=== PATIENT | female | born 1960 | race Caucasian/White ===

== ENCOUNTER 2025-01-15 18:50 | Observation (INO) | payer OTHER, SELFPAY ==
[2025-01-15] VITALS (8 sets, daily range): BP systolic 120–165; BP diastolic 69–126; BMI 31.5; BMI 32.4
--- NOTE | 2025-01-15 12:03 | ED.GENMED ---
History of Present Illness
General
Chief Complaint: Breathing Problem
Source: patient
Exam Limitations: none
Time Seen by Provider: 01/15/25 12:02
Nursing documentation reviewed up to this point in time: agreed with
History of Present Illness
History of Present Illness:
64-year-old female with history of fibromyalgia, migraines, GERD, IBS, Knapp's esophagus, anxiety/depression, cholecystectomy, hysterectomy presents for worsening fatigue, exhaustion, nausea, heart beating fast and breaking out in a sweat with any
exertion over the past 2 weeks.
Past History
Past History
ED Past Medical History: GERD, Psychiatric (Anxiety, depression, PTSD.) and Other (Fibromyalgia)
ED Past Surgical History: Cholecystectomy and Gynecological
Social History
Tobacco: Non-smoker
Alcohol: None
Personal: Single
Living: with family (Lives with her son)
Employment: Not employed
Review of Systems
Review of Systems
Allergies reviewed?: Yes
All Other Systems: ROS reviewed and negative except as documented in HPI and ROS
Constitutional: Reports fatigue; Denies fever
EENT: Denies sore throat
Respiratory: Reports trouble breathing; Denies cough
Cardiac: Reports diaphoresis and palpitations; Denies chest pain or syncope
ABD/GI: Reports nausea and anorexia; Denies abdominal pain, vomiting or diarrhea
: Denies dysuria, frequency, difficulty voiding or urgency
Musculoskeletal: Reports other (Chronic generalized pain followed by pain management); Denies edema
Skin: Reports no symptoms
Neurological: Denies headache, weakness or numbness
Psychiatric: Reports anxiety (Patient admits that her anxiety may be playing a part in her symptoms. She took 0.5 mg of alprazolam prior to coming here.)
Phy Exam
Physical Exam
Physical Exam:
GENERAL: No acute distress. A&Ox3.
CONSTITUTIONAL: Afebrile.
EYES: clear, conjunctivae normal
ENMT: moist mucus membranes, Pharynx nl
RESPIRATORY: Regular respirations, nonlabored, lungs clear. No hypoxemia, pulse ox 98% on room air
CARDIOVASCULAR: Regular rate and rhythm, no murmurs, no rubs. Tachycardic at 114 on monitor
GI: Soft, nontender, normal BS
MUSCULOSKELETAL: Moves with ease. Well perfused. No edema
SKIN: Warm, dry, pink
PSYCH: Anxious mood and affect. Well kept, interactive and appropriate
NEUROLOGIC: Awake, alert and oriented. No focal neurological deficits
Scores
Heart Failure Risk
Heart Failure Risk Score: Not Applicable
Course
Orders/Labs/Results
Orders:
Orders
01/15/25 11:41
Electrocardiogram (*1) Urgent
Reason for Study: Chest Pain
EKG- Treatment ONCE
01/15/25 12:09
Complete Blood Count/With Diff Urgent
Comprehensive Metabolic Panel Urgent
TSH Reflex To Free T4 Urgent
Comment: ADD ON
01/15/25 12:38
Ondansetron Injectable [Zofran] 4 mg IV NOW STA
01/15/25 12:39
0.9% Sodium Chloride 1000 ml [Nss] 1,000 ml IV BOLUS
01/15/25 12:40
D-Dimer Urgent
01/15/25 12:53
Add On- LAB Urgent
Tests Added?: TSH reflex T4
01/15/25 13:19
Troponin I Urgent
01/15/25 14:14
CT Chest PE Study Urgent
Comment:
Reason For Exam: Tachy, SOB with any exertion
01/15/25 16:59
Troponin I Urgent
01/15/25 18:11
Admit/Transfer Patient As Directed
Co-Sign Provider:
Level of Care: Observation services
Assign to:: Telemetry
Physician / Group: Yovani Ritchie
Diagnosis: exertional dyspnea, palpitations
Reason for Telemetry: Chest Pain syndromes
Date to Stop Telemetry: 01/17/25
Time to Stop Telemetry: 11:00
PRN Pain Medication Management As Directed
May give lesser potent ordered pain med per pt: Yes
preference::
Protocol:: Medication orders for pain may be administered in a
manner that supports deferring to patient preference
when the pt is:
- Requesting an ordered lesser potent pain medication.
Least to most potent pain medications are defined
as: acetaminophen < NSAID < tramadol < opioids
(morphine, oxycodone, hydromorphone).
- Requesting a lesser dose of the same medication IF
ORDERED.
- Requesting a less intrusive route of administration
if both routes are prescribed by the provider (PO <
IV).
01/15/25 18:12
Code Status As Directed
Resuscitation Status: Full Code
01/15/25 18:17
Potassium Chloride [KCl] 40 meq PO NOW STA
01/17/25 11:00
DC Protocol for Telemetry ONCE
Abnormal Lab Results
01/15/25
12:09
WBC 12.3 H 10^3/uL
(4.8-10.8)
MCH 32.5 H pg
(27.0-31.0)
Absolute Neuts (auto) 8.9 H 10^3/uL
(1.4-6.5)
Potassium 3.2 L mmol/L
(3.5-5.1)
Carbon Dioxide 19 L mmol/L
(22-30)
Glucose 123 H mg/dl
(70-99)
Calcium 10.5 H mg/dl
(8.4-10.2)
01/15/25 12:09
01/15/25 12:09
Vital Signs
Initial and Last Documented VS:
Initial Vital Signs
Temp Pulse Resp BP Pulse Ox
97.7 F 131 24 161/126 100
01/15/25 11:45 01/15/25 11:45 01/15/25 11:45 01/15/25 11:45 01/15/25 11:45
Last Documented Vital Signs
Temp Pulse Resp BP Pulse Ox
97.7 F 89 12 155/76 98
01/15/25 11:45 01/15/25 18:15 01/15/25 18:15 01/15/25 18:00 01/15/25 17:45
Bods Developer consulted with Physician
Bods Developer consulted with physician?: Yes
Name of Physician Consulted: Dr. Weber
MDM/Problems Addressed
Differential Diagnosis Includes:
PE, pneumonia, dehydration, thyroid disorder, Anxiety, cardiac, COPD
MDM/Problems Addressed:
64-year-old female with history of fibromyalgia, migraines, GERD, IBS, Knapp's esophagus, anxiety/depression, cholecystectomy, hysterectomy presents for worsening fatigue, exhaustion, nausea, heart beating fast and breaking out in a sweat with any
exertion over the past 2 weeks.
EKG: Sinus tachycardia rate 124, occasional PVC
12:45 PM:
CBC with no clinically significant abnormality
CMP with bicarb of 19, patient is anxious, hyperpneic and instructed to slow her breathing down, otherwise CMP is normal
TSH: WNL
Troponin:WNL
1:40 PM:
D dimer normal
Patient ambulated around the hallway with pulse ox on, maintained Pulse ox at 98%, she felt a little dizzy, HR went to 124, she did not feel SOB.
In to re evaluate pt: she does not feel any better. Concerned that 'I don't know what's going on.' at bedside states 'it's been going on for a while.' Any time she does any activity, she gets the symptoms.
4:30 PM:
Case discussed with Dr. Weber
Chest CT with IV contrast only radiology report read: No significant abnormality identified in the chest.
Nothing in w/u here today to explain symptoms
Pt and not comfortable being discharged as symptoms are not typical of her anxiety
Pt is a smoker: May be early COPD, may need echo, need cardiac workup, Pulmonary eval
Hospitalist notified of admission.
Spoke with Cardiology Dr. Morris who agrees pt may need echocardiogram, no tech in the hospital at this time
Chronic conditions affecting care: Psychiatric illness (anxiety)
*Pulse Oximetry
Patient hypoxic: no (Pulse ox 98% on room air)
Comment: Pulse ox 98% RA
*EKG
EKG Intrepretation Date: 01/15/25
Interpretation: abnormal
Heart Rate: 124
Rate: tachycardiac
Rhythm: sinus
[place]: normal axis
Interval: normal interval
QRS Pattern: normal QRS
Ischemia: no ischemia
*Cash Accountant Interpretation
Rate: tachycardiac
Interpretation: abnormal
Heart Rate: 114
Rhythm: sinus
*Critical Care Note
Total Time (30-74mins, 75-104mins- exclusive of procedures): Not Applicable
ED Attending Note
-
Portions of this chart may have been created with voice recognition software.� Occasional wrong word or��sound alike� substitutions may have occurred due to the inherent limitations of voice recognition software.
Discharge Plan
Departure
Patient Disposition: Admit
Date of Disposition: 01/15/25
Time of Disposition: 16:45
Admit to: Med/Surg
Presentation/result/management discussed w/ accepting MD/DO: Hospitalist
Condition: Fair
Discharge Problem:
BOJORQUEZ (dyspnea on exertion), Fatigue
Interventions
Interventions:
*Risk Screen - Suicide Last Done: 01/15/25 11:45
*General Assessment Last Done: 01/15/25 11:45
*Neglect/Abuse Screening Last Done: 01/15/25 11:45
*ED- Fall Risk Assessment Last Done: 01/15/25 15:26
*ED COVID-19 Vaccine History Last Done: 01/15/25 15:26
ED- Cardiac Assessment Last Done: 01/15/25 15:26
ED- Pulmonary Assessment Last Done: 01/15/25 15:26
[2025-01-15 12:19] LABS: % Basophils 0.6 % (0-2); % Eosinophils 0.7 % (0-6); % Immature Granulocytes 0.3 % (0-0.5); % Lymphocytes 22.6 % (20.5-51.1); % Monocytes 3.3 % (1.7-9.3); % Neutrophils 72.5 % (42.2-75.2); Absolute Basophils 0.1 10^3/uL (0-0.2); Absolute Eosinophils 0.1 10^3/uL (0-0.7); Absolute Lymphocytes 2.8 10^3/uL (1.2-3.4); Absolute Monocytes 0.4 10^3/uL (0.1-0.6); Absolute Neutrophils 8.9 10^3/uL (1.4-6.5); Hematocrit 42.2 % (37.0-47.0); Hemoglobin 14.9 g/dL (12.0-16.0); Mean Corp Hgb Conc. 35.3 g/dL (33.0-37.0); Mean Corpuscular Hgb 32.5 pg (27.0-31.0); Mean Corpuscular Volume 91.9 fL (81.0-99.0); Nucleated Red Blood Cells % 0 %; Platelet Count 361 10^3/uL (130-400); Red Blood Cell Count 4.59 10^6/uL (4.20-5.40); Red Cell Dist. Width 13.3 % (11.5-14.5); White Blood Cell Count 12.3 10^3/uL (4.8-10.8)
[2025-01-15 12:37] LABS: AST (SGOT) 24 U/L (14-36); Alkaline Phosphatase 76 U/L (38-126); Blood Urea Nitrogen 8 mg/dl (7-17); Calcium 10.5 mg/dl (8.4-10.2); Carbon Dioxide 19 mmol/L (22-30); Chloride 105 mmol/L (98-107); Glucose 123 mg/dl (70-99); Potassium 3.2 mmol/L (3.5-5.1); Sodium 139 mmol/L (135-145); Total Bilirubin 0.5 mg/dl (0.2-1.3); Total Protein 8.1 g/dl (6.3-8.2); eGFR > 60.00
[2025-01-15] MEDS: ZOFRAN 4 MG IV ×2 (12:45→19:20)
[2025-01-15] MEDS: NSS 1000 IV (12:48)
[2025-01-15 12:51] LABS: ALT (SGPT) 31 U/L (0-35)
[2025-01-15 13:11] LABS: D-Dimer < 0.27 ug/mlFEU (0.00-0.50)
[2025-01-15 13:49] LABS: Troponin I < 0.012 ng/ml
[2025-01-15 14:26] LABS: TSH Reflex To Free T4 3.22 uIU/ml (0.47-4.68)
--- NOTE | 2025-01-15 17:25 | HPS.HSE ---
Family Physician
-
Family Physician: Maryjo Conde
Chief Complaint
-
worsening fatigue
History of Present Illness
Patient is a 64-year-old female with past medical history significant for depression and anxiety who presents to [facility] ED for evaluation of worsening fatigue, exhaustion, nausea, tachycardia and exertional diaphoresis over the past 2 weeks. She
states the symptoms arise with minimal exertion and resolve with rest. She is expressing frustration with symptoms as she normally is a go-go-go type of person and this has made it very limiting. Patient denies any headaches, fever, chills, cough,
chest pain, vomting, constipation, diarrhea or urinary symptoms.
Medical History
Past Medical History
Past Medical History: Reports Other
Additional Past Medical History:
Fibromyalgia
Depression
Anxiety
Cyst Of Liver
C. difficile colitis
Knapp's Esophagus
Diverticulitis
Past Surgical History: Reports Other
Additional Past Surgical History:
Robotic Total Laparoscopic Hysterectomy and BSO (2009)
Cholecystectomy
Social History
Tobacco: Smoker (pack per day, approximate 30 pack year history )
Alcohol: None
Drug: None
Personal: Single
Living: With Family
Employment: Disabled
Family History
Family History: Other (Mother: CHF; Father: CAD, [place])
Allergies / Home Medications
Allergies reflects when Allergies were last updated in [employer].
Home Medications with original date entered in [employer]
Allergy/Medication List:
Allergies
Allergy/AdvReac Type Severity Reaction Status Date / Time
naproxen (Naproxen) Allergy Rash Verified 01/15/25 11:45
Home Medications
duloxetine 60 mg capsule,delayed release (Cymbalta) 60 mg PO DAILY 05/30/09
oxycodone-acetaminophen 5 mg-325 mg tablet 1 tab PO Q6HPRN PRN Pain #8 tabs 11/20/14
alprazolam 0.5 mg tablet 0.5 mg PO DAILY 01/15/25
celecoxib 200 mg capsule (Celebrex) 200 mg PO HS 01/15/25
celecoxib 200 mg capsule (Celebrex) 400 mg PO DAILY 01/15/25
conjugated estrogens 0.625 mg tablet (Premarin) 0.625 mg PO DAILY 01/15/25
milnacipran 100 mg tablet (Savella) 100 mg PO DAILY 01/15/25
omeprazole 40 mg capsule,delayed release 80 mg PO DAILY 01/15/25
quetiapine 50 mg tablet (Seroquel) 50 mg PO HS 01/15/25
sertraline 100 mg tablet (Zoloft) 100 mg PO DAILY 01/15/25
tizanidine 4 mg tablet 4 mg PO Q8H PRN spams 01/15/25
Review of Systems
-
History Source: Patient
Constitutional: Reports Fatigue
Respiratory: Reports Trouble Breathing (exertional dyspnea )
Cardiac: Reports Diaphoresis
Abdomen/GI: Reports Nausea
Physical Exam
Vital Signs
Vital Signs
Temp Pulse Resp BP Pulse Ox
97.7 F 102 13 120/74 98
01/15/25 11:45 01/15/25 15:37 01/15/25 15:37 01/15/25 15:00 01/15/25 15:37
Physical Exam
General: Well Developed, Well Nourished, No Apparent Distress and Obese
HEENT: NormoCephalic, Moist mucous membranes, Atraumatic, Nose Appears Normal and Ears Appear Normal
Respiratory: Clear
Cardiac: S1/S2 and Regular Rhythm
Breast: Deferred by me
GI: Soft, Non Tender, Non Distended and Normal Bowel Sounds
Rectal: Deferred by Provider
Genito-urinary: Deferred by me
Musculoskeletal: No Clubbing, No Cyanosis and No Edema
Skin: IV/Catheter Site
Neuro: Awake, Alert, AO x 3 and Nonfocal/grossly intact
Psych: Calm
Laboratory Results
-
01/15/25 12:09
01/15/25 12:09
Laboratory Results
Total Bilirubin 0.5 mg/dl (0.2-1.3) 01/15/25 12:09
AST 24 U/L (14-36) 01/15/25 12:09
ALT 31 U/L (0-35) 01/15/25 12:09
Alkaline Phosphatase 76 U/L (38-126) 01/15/25 12:09
Troponin I < 0.012 ng/ml 01/15/25 13:19
Data Reviewed
-
CT Scan: Report Reviewed by me (Chest: 1. No evidence of pulmonary embolism. 2. No significant abnormality identified in the chest, as described above.)
Medical Tests (Nuc Med, Echo, EKG etc): Report Reviewed by me (EKG: SINUS TACHYCARDIA WITH OCCASIONAL PREMATURE VENTRICULAR COMPLEXES BIATRIAL ENLARGEMENT NONSPECIFIC ST ABNORMALITY)
Lab Data: Labs Reviewed by me (WBC 12.3, K+ 3.2, Calcium 10.5 (Corrected to 9.7))
Impression/Plan
-
IMPRESSION/PLAN:
#exertional diaphoresis, exertional dyspnea, nausea 2/2 possible stable agina
WBC 12.3, K+ 3.2, Calcium 10.5 (Corrected to 9.7)
EKG: SINUS TACHYCARDIA WITH OCCASIONAL PREMATURE VENTRICULAR COMPLEXES
BIATRIAL ENLARGEMENT
NONSPECIFIC ST ABNORMALITY
Chest CT: 1. No evidence of pulmonary embolism.
2. No significant abnormality identified in the chest, as described above
- Admit to telemetry
- Consult cardiology
- ECHO in AM
#Fibromyalgia
- continue milnacipran
#Depression/Anxiety
- continue alprazolam, celecoxib, duloxetine and seroquel
#GERD
#Knapp's Esophagus
- continue omeprazole
#Diverticulitis
Code status: full code
DVT prophylaxis: Lovenox sq
[2025-01-15 17:34] LABS: Troponin I < 0.012 ng/ml
--- NOTE | 2025-01-15 18:34 | W.PN.UPDATE ---
Update Note
Progress Note Update
This is an addendum to H&P written by Halima Arguelles on 01/15/2025. �Patient seen and examined independently with OCCUPATIONAL THERAPY ASSIST.
64-year-old female past medical history of C. difficile colitis, anxiety/depression/PTSD, fibromyalgia, GERD, migraines, IBS, Knapp's esophagus, presenting with worsening fatigue, exhaustion and nausea and tachycardia with sweats with exertion
worse over the past 2 weeks but ongoing longer.�
EKG shows sinus tachycardia with heart rate 120s occasional PVCs.
Labs show leukocytosis. �Troponins negative. �Potassium 3.2.
CT chest shows no evidence of pulmonary embolism or any abnormality. �TSH of 3.22.
Unclear etiology of symptoms could be stable angina.� Check echo. Cardiology consulted. Replete potassium.�
[2025-01-15] MEDS: KCL 40 MEQ PO (18:39)
[2025-01-15] MEDS: NICODERM TRANSDERMAL 14 MG TRANSDERM (19:22)
--- NOTE | 2025-01-15 20:00 | PTCARENOTE ---
Pt arrived to unit from ED, ambulated independently from stretcher to bed. AAOx3, VSS. Pt oriented to room, call ramos in reach. Pt reports about 2-3 liquid stools at home per usual pattern, now increased to about 5 liquid stools per day the past
two days, hx of IBS and cdiff more than a month ago. Pt takes imodium at home PRN. DAGOBERTO Austin notified, order placed for PRN imodium and provided to pt. Pt placed on enhanced precautions per protocol d/t more than 3 loose stools in 24 hours.
[2025-01-15] MEDS: PERCOCET 5/325 2 TABLET PO (21:40)
[2025-01-15] MEDS: ZANAFLEX 4 MG PO (21:41)
[2025-01-15] MEDS: SEROQUEL 50 MG PO (21:41)
[2025-01-15] MEDS: PROTONIX 40 MG PO (21:41)
[2025-01-15] MEDS: IMODIUM 2 MG PO (21:41)
[2025-01-15] MEDS: CELEBREX 200 MG PO (21:45)
[2025-01-15] MEDS: ZOLOFT 100 MG PO (22:49)
[2025-01-16] VITALS (14 sets, daily range): BP systolic 97–147; BP diastolic 55–90
[2025-01-16] MEDS: IMODIUM 2 MG PO ×4 (03:49→21:46)
[2025-01-16 07:30] LABS: Hematocrit 37.2 % (37.0-47.0); Hemoglobin 12.7 g/dL (12.0-16.0); Mean Corp Hgb Conc. 34.1 g/dL (33.0-37.0); Mean Corpuscular Hgb 32.2 pg (27.0-31.0); Mean Corpuscular Volume 94.2 fL (81.0-99.0); Mean Platelet Volume 10.1 fL (7.4-10.4); Platelet Count 290 10^3/uL (130-400); Red Blood Cell Count 3.95 10^6/uL (4.20-5.40); Red Cell Dist. Width 13.6 % (11.5-14.5); White Blood Cell Count 9.2 10^3/uL (4.8-10.8)
[2025-01-16 08:27] LABS: Blood Urea Nitrogen 10 mg/dl (7-17); Calcium 9.3 mg/dl (8.4-10.2); Carbon Dioxide 22 mmol/L (22-30); Chloride 107 mmol/L (98-107); Estimated Creatinine Clearance 110 ml/min; Glucose 81 mg/dl (70-99); HDL Cholesterol 44 mg/dl; LDL Cholesterol, Calculated 131 mg/dl; Potassium 3.9 mmol/L (3.5-5.1); Sodium 138 mmol/L (135-145); Total Cholesterol 207 mg/dl (50-199); Triglyceride 162 mg/dl (10-149); Very Low Density Lipoprotein 32 mg/dl (0-30); eGFR > 60.00
[2025-01-16] MEDS: NICODERM TRANSDERMAL 14 MG TRANSDERM (09:15)
[2025-01-16] MEDS: CELEBREX 200 MG PO ×2 (09:16→20:07)
[2025-01-16] MEDS: CYMBALTA DELAYED RELEASE 60 MG PO (09:16)
[2025-01-16] MEDS: PROTONIX 40 MG PO ×2 (09:16→20:07)
[2025-01-16 09:22] LABS: Glycohemoglobin (HgbA1c) 5.5 % (4.0-5.6)
[2025-01-16] MEDS: PERCOCET 5/325 2 TABLET PO ×2 (09:22→16:16)
--- NOTE | 2025-01-16 09:33 | W.PN.HOSP.TC ---
Today's Communication/Plan
-
Start ezetimibe
Assessment / Plan
Assessment / Plan
Impression
64-year-old female with past medical history significant for depression and anxiety who presents to [facility] ED for evaluation of worsening fatigue, exhaustion, nausea, tachycardia and exertional diaphoresis over the past 2 weeks.
Plan
# Dyspnea on exertion/exertional diaphoresis
Likely due to stable angina vs PE vs hyperthyroidism vs hypercortisolism
EKG: Sinus tachycardia, occasional PVCs, Nonspecific ST abnormality
Chest CT: No evidence of pulmonary embolism.
D-dimer�negative
Troponin X2 negative
TSH normal
Electrolytes unremarkable
Echo�EF 55-60%, no acute findings
Cardiology on board
May need ischemic workup, likely plan for stress EKG or LHC
#Hyperlipidemia
TC 207, LDL 131, HDL 44, TG 162
ASCVD risk�12.5%
Patient is allergic to statins
Start ezetimibe 10 mg
#Nicotine use
Nicotine patch
#Fibromyalgia
continue milnacipran
#Depression/Anxiety
-continue alprazolam, celecoxib, duloxetine and seroquel
#GERD
#Knapp's Esophagus
- continue omeprazole
#DVT prophylaxis - Lovenox
Full code
Anticipated Discharge: 24 - 48 hours
Subjective/Interval History
-
Date of Service: January 16, 2025
Patient just came back from [facility]. She reports having SOB, sweating.
Objective Data
-
Labs:
Laboratory Results
01/16/25
06:55
WBC 9.2
Hgb 12.7
Hct 37.2
Plt Count 290
Sodium 138
Potassium 3.9
Chloride 107
Carbon Dioxide 22
BUN 10
Creatinine 0.6
Glucose 81
Calcium 9.3
Vital Signs:
Vital Signs
Temp Pulse Resp BP Pulse Ox
97.8 F 89 16 127/72 99
01/16/25 07:10 01/16/25 07:10 01/16/25 07:10 01/16/25 07:10 01/16/25 07:10
I&O
01/15/25 01/16/25 01/17/25
06:59 06:59 06:59
Intake Total 1440 / 1440
Balance 1440 / 1440
Physical Exam
-
General: Well Developed and Well Nourished
HEENT: Normocephalic and Atraumatic
Respiratory: Clear to Auscultation
Cardiac: Regular Rhythm, S1/S2 and Other (No peripheral edema)
GI: Soft, Nontender, Nondistended and Normal Bowel Sounds
Skin: Warm and Dry
Neuro: Awake, Alert, Oriented and AO x 3
Psych: Calm
--- NOTE | 2025-01-16 10:15 | CON.CAR ---
Addendum entered and electronically signed by Calvin Valladares MD 01/16/25 13:40:
I saw and examined the patient.
The PRINCIPLE SOFTWARE ENGINEER's note was reviewed and I agree with the note.
Comment:
64-year-old female with hyperlipidemia and current smoker (1 PPD since 18 yo) who presents with dyspnea, diaphoresis, and chest tightness on exertion. Symptoms have been accelerating in the past few weeks and now occur even with walking to the
bathroom. Labs notable for undetectable troponin, LDL 131. ECG: Sinus tach with PVCs, nonspecific ST�T wave abnormalities overall unchanged from prior. TTE with LVEF 55-60% and no regional wall motion abnormalities. CT PE negative and no
parenchymal lung disease.
Physical exam with RRR, no murmurs, no lower extremity edema, mild bibasilar crackles.
Her symptoms could be anginal in nature but it is somewhat unusual that she has such severe symptoms with completely undetectable troponin. Cardiac catheterization today to exclude obstructive coronary artery disease. Otherwise symptoms could be
due to underlying lung disease given her significant smoking history. Less likely CHF without pulmonary edema on chest CT and no evidence of elevated filling pressures on echo. Could trial Lasix.
Original Note:
Consultation
Consultation Request
Date/Time Consultation Requested: 01/15/2025 19:50
Date/Time Consultation Performed: 01/16/2025 09:30
Requesting Provider: WALI Valencia
Performing Provider: WALI Estevez for Dr. Valladares
Reason for Consultation: Dyspnea on exertion
Medical History
-
Chief Complaint: Dyspnea on exertion
History of Present Illness:
Mia Dyson is a 64-year-old female (known to Dr. Nunez), with hypercholesterolemia, GERD, Knapp's esophagus, IBS-D, and fibromyalgia who presented to the emergency department with dyspnea on exertion. She endorses associated exertional
sweating, palpitations, and fatigue. This has been ongoing for several weeks and is progressively getting worse. This occurred in the past in 2021. At that time she was evaluated by Dr. Nunez. She was referred for cardiac catheterization. She
did not require any intervention. Report requested. At the time of this consultation, she appears short of breath after ambulating back from the bathroom. No acute changes on her EKG. Troponin <0.012 x 2.
Past Medical History
Past Medical History: GERD (With Knapp's esophagus), Hypercholesterolemia and Other (Fibromyalgia, IBS-D)
Past Surgical History: Cholecystectomy and Gynecological
Social History
Tobacco: Smoker (3/4 PPD for ~45 years)
Alcohol: None
Drug: None
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
Family History
Family History: CAD
Allergies / Home Medications
Allergy/AdvReac Type Severity Reaction Status Date / Time
naproxen (Naproxen) Allergy Rash Verified 01/15/25 11:45
[id number] Reductase Allergy Hives Verified 01/15/25 20:12
Inhibitor
�Medication �Instructions �Recorded �Confirmed �Type
duloxetine 60 mg capsule,delayed 60 mg PO DAILY 05/30/09 01/15/25 History
release (Cymbalta)
oxycodone-acetaminophen 5 mg-325 1 tab PO Q6HPRN PRN Pain #8 tabs 11/20/14 01/15/25 Rx
mg tablet
Imodium 2 mg PO PRN Diarrhea 01/15/25 History
alprazolam 0.5 mg tablet 0.5 mg PO DAILY 01/15/25 01/15/25 History
celecoxib 200 mg capsule (Celebrex) 200 mg PO HS 01/15/25 01/15/25 History
celecoxib 200 mg capsule (Celebrex) 400 mg PO DAILY 01/15/25 01/15/25 History
conjugated estrogens 0.625 mg 0.625 mg PO DAILY 01/15/25 01/15/25 History
tablet (Premarin)
milnacipran 100 mg tablet (Savella) 100 mg PO DAILY 01/15/25 01/15/25 History
omeprazole 40 mg capsule,delayed 80 mg PO DAILY 01/15/25 01/15/25 History
release
quetiapine 50 mg tablet (Seroquel) 50 mg PO HS 01/15/25 01/15/25 History
sertraline 100 mg tablet (Zoloft) 100 mg PO HS 01/15/25 01/15/25 History
tizanidine 4 mg tablet 4 mg PO Q8H PRN spams 01/15/25 01/15/25 History
Review of Systems
-
History Source: Patient
All other systems: Negative unless noted
Constitutional: Fatigue
EENT: No Symptoms
Respiratory: Trouble Breathing
Cardiac: Palpitations
Abdomen/GI: No Symptoms
: No Symptoms
Musculoskeletal: No Symptoms
Skin: No Symptoms
Neurological: No Symptoms
Endocrine: No Symptoms
Hematologic/Lymphatic: No Symptoms
Physical Exam
Vital Signs
Temp Pulse Resp BP Pulse Ox
97.8 F 89 16 127/72 99
01/16/25 07:10 01/16/25 07:10 01/16/25 07:10 01/16/25 07:10 01/16/25 07:10
Lab Results
01/16/25 06:55
01/16/25 06:55
Troponin I < 0.012 ng/ml 01/15/25 16:59
Physical Exam
General: Well Developed, Well Nourished, No Apparent Distress and Comfortable
HEENT: Normocephalic, Anicteric and Moist Mucous Membranes
Respiratory: Clear and Non Labored Respirations
Cardiac: S1/S2 and Regular Rhythm (Tachycardia); Negative Peripheral Edema
Breast: Deferred by me
GI: Soft, Non Tender, Non Distended and Normal Bowel Sounds
Rectal: Deferred by Provider
Genito-urinary: No Costovertebral Tender
Musculoskeletal: No Clubbing and No Cyanosis
Skin: Warm and Dry
Neuro: AO x 3
Hematologic/Lymphatic: No Lymphadenopathy
Psych: Calm
Impression / Plan
-
I/P: 64F with hypercholesterolemia GERD, Knapp's esophagus, IBS-D, and fibromyalgia who presented to the emergency department with dyspnea on exertion.
Primary gas engine repairer: Dr. Nunez
Dyspnea on exertion
- Associated palpitations and diaphoresis
- CT PE without pulmonary embolism
- EKG stable
- Troponin less than 0.012 x 2
- Echocardiogram without acute findings
- [facility] in 2021, report requested
Hypercholesterolemia
- TC 207, LDL 131, HDL 44, TG 162
- ASCVD risk currently intermediate 9.2%
Current smoker, cessation recommended
GERD with Knapp's esophagus
Fibromyalgia
IBS-D
Data Reviewed
-
EKG: Report Reviewed by me
CT Scan: Report Reviewed by me
Medical Tests (Nuc Med, Echo etc): Report Reviewed by me
Labs: Labs Reviewed by me
Old Records: Reviewed
[2025-01-16] MEDS: PREMARIN 0.625 MG PO (11:03)
--- NOTE | 2025-01-16 11:57 | CM ---
utilization manager reviewed patient's chart and met with patient and patient was admitted under obs, obs letter discussed with patient signed and placed on chart, patient's son lives with her in a 2 story home home, patient is independent with adl's and
ambulation, patient drives, home when stable, no needs.
PCP: Maryjo garcia
Pharmacy: [facility]
Plan; Home when stable, no needs.
--- NOTE | 2025-01-16 14:10 | PTCARENOTE ---
pt back from [employer] s/p catheterization. pt is AAO*3, Vss, room air 98%. denies any pain or discomfort. pt's family at the bedside updated. call ramos within the reach. plan of care ongoing.
[2025-01-16] MEDS: ZETIA 10 MG PO (14:18)
--- NOTE | 2025-01-16 14:36 | ITS.CL.PN ---
Manager Medical Writing - Procedure Note
Procedure
Procedure Note:
CARDIAC CATHETERIZATION REPORT
Date of Procedure: 01/16/2025
Referring: Dr. Calvin Song MD
Indication: Concern for acute coronary syndrome
PROCEDURE: coronary angiography
ACCESS: 6F right radial artery (closure: radial band)
CATHETERS
1. 6F JR4
2. 6F JL3.5
MODERATE SEDATION: 25 minutes of moderate sedation was utilized. An independent medical social worker was present to assist with and help manage the patient's level of consciousness and physiologic status.
CORONARY ANGIOGRAPHY
Dominance: Right
LM: Large, normal
LAD: Large vessel giving rise to an early septal cascade, small D1, moderate caliber D2, and small D3 before terminating as a diminutive vessel at the apex. There are trivial luminal irregularities only.
LCx: Large vessel giving rise to a single large OM branch. There are trivial luminal irregularities only.
RCA: large torturous vessel giving rise to a medium caliber RPDA and several small RPL branches. There is mild disease in the mid vessel.
RADIATION: dose 390 mGy; DAP 27.0 Gy*cm2; fluoroscopy time 2.1 min
CONCLUSION: nonobstructive coronary artery disease in a right dominant system as described.
Signed: Gerardo Philip MD, PhD
[2025-01-16] MEDS: ZANAFLEX 4 MG PO (16:16)
[2025-01-16] MEDS: LOVENOX 40 MG SC (17:12)
[2025-01-16] MEDS: XANAX 1 MG PO (17:12)
[2025-01-16] MEDS: ZOLOFT 100 MG PO (21:41)
[2025-01-16] MEDS: SEROQUEL 50 MG PO (22:59)
[2025-01-17] MEDS: ZANAFLEX 4 MG PO (05:05)
[2025-01-17] MEDS: PERCOCET 5/325 2 TABLET PO (05:05)
[2025-01-17] MEDS: IMODIUM 2 MG PO (05:08)
[2025-01-17 07:02] VITALS: BP 107/72
[2025-01-17 07:12] LABS: Hematocrit 34.2 % (37.0-47.0); Hemoglobin 11.6 g/dL (12.0-16.0); Mean Corp Hgb Conc. 33.9 g/dL (33.0-37.0); Mean Corpuscular Volume 94.5 fL (81.0-99.0); Platelet Count 263 10^3/uL (130-400); Red Blood Cell Count 3.62 10^6/uL (4.20-5.40); Red Cell Dist. Width 13.5 % (11.5-14.5)
[2025-01-17 07:27] LABS: ALT (SGPT) 22 U/L (0-35); AST (SGOT) 19 U/L (14-36); Albumin 3.7 g/dl (3.5-5.0); Alkaline Phosphatase 57 U/L (38-126); Blood Urea Nitrogen 10 mg/dl (7-17); Calcium 9.5 mg/dl (8.4-10.2); Carbon Dioxide 23 mmol/L (22-30); Chloride 106 mmol/L (98-107); Estimated Creatinine Clearance 110 ml/min; Glucose 99 mg/dl (70-99); Sodium 136 mmol/L (135-145); Total Bilirubin 0.4 mg/dl (0.2-1.3); Total Protein 6.2 g/dl (6.3-8.2); eGFR > 60.00
--- NOTE | 2025-01-17 07:39 | W.PN.HOSP.TC ---
Today's Communication/Plan
-
Discharge
OP follow-up with pulmonology and psychiatry
Assessment / Plan
Assessment / Plan
#Dyspnea on exertion
-Suspect related to anxiety, had left heart cath that was negative
-Does have [id number] smoking history the lungs sound clear
-Currently stable on room air, vitals WNL, exam normal
-Will provide OP pulmonology follow-up for PFTs
-Encourage OP follow-up with psych to titrate anxiety meds
-Provide as needed albuterol MDI
#Hyperlipidemia
-TC 207, LDL 131, HDL 44, TG 162
-ASCVD risk�12.5%
-Patient is allergic to statins
-Started ezetimibe 10 mg
#Nicotine use
-Nicotine patch
-Encourage cessation
#Fibromyalgia
-continue milnacipran
#Depression/Anxiety
-continue alprazolam, celecoxib, duloxetine and seroquel
#GERD
#Knapp's Esophagus
-Continue home omeprazole
-Add on as needed famotidine
Diet: Cholesterol lower
DVT prophylaxis: Lovenox
CODE STATUS: Full code
Anticipated Discharge: Today
Subjective/Interval History
-
Date of Service: January 17, 2025
Seen and examined at the bedside. No events overnight. AFVSS on room air
Negative left heart cath yesterday. Denies any new complaints today. States she feels well and would like to go home
Objective Data
-
Labs:
Laboratory Results
01/17/25
06:23
WBC 7.0
Hgb 11.6 L
Hct 34.2 L
Plt Count 263
Sodium 136
Potassium 4.0
Chloride 106
Carbon Dioxide 23
BUN 10
Creatinine 0.6
Glucose 99
Calcium 9.5
Total Bilirubin 0.4
AST 19
ALT 22
Alkaline Phosphatase 57
Vital Signs:
Vital Signs
Temp Pulse Resp BP Pulse Ox
98.1 F 78 18 109/64 96
01/16/25 23:18 01/16/25 23:18 01/16/25 23:18 01/16/25 23:18 01/16/25 23:18
I&O
01/16/25 01/17/25 01/18/25
06:59 06:59 06:59
Intake Total 2880 / 2880
Balance 2880 / 2880
Review of Systems
-
History Source: Patient
All other systems: Reviewed and negative
Physical Exam
-
General: Well Developed, No Apparent Distress, Comfortable and Obese
HEENT: Normocephalic, Atraumatic and Moist Mucous Membranes
Respiratory: Clear to Auscultation and Non Labored Respirations
Cardiac: Regular Rhythm and S1/S2; Negative Murmur, Rub, JVD or Gallop
GI: Soft, Nondistended, Normal Bowel Sounds and Tender (Mild epigastrium)
Musculoskeletal: No Clubbing, No Cyanosis and No Edema
Skin: Warm and Dry; Negative Rash
Neuro: AO x 3 and Nonfocal/Grossly Intact; Negative Tremors
Psych: Calm
Data Reviewed
-
Labs: Labs Reviewed by me, Discussed with Physician (Prescription Eyeglass Maker) and Discussed with Patient
[2025-01-17] MEDS: NICODERM TRANSDERMAL 14 MG TRANSDERM (07:58)
[2025-01-17] MEDS: PROTONIX 40 MG PO (07:58)
[2025-01-17] MEDS: CELEBREX 200 MG PO (07:58)
[2025-01-17] MEDS: CYMBALTA DELAYED RELEASE 60 MG PO (07:58)
[2025-01-17] MEDS: PREMARIN 0.625 MG PO (07:58)
[2025-01-17] MEDS: ZETIA 10 MG PO (08:04)
--- NOTE | 2025-01-17 08:39 | W.PN.CD ---
Today's Communication / Plan
-
Start aspirin. Continue Zetia.
Cardiology will sign off at this time. Please call with any additional questions or concerns.
Impression / Plan
-
I/P: 64F with hypercholesterolemia GERD, Knapp's esophagus, IBS-D, and fibromyalgia who presented to the emergency department with dyspnea on exertion. [facility] with nonobstructive CAD.
Primary ethernet network architect: Dr. Nunez
Dyspnea on exertion
- Associated palpitations, diaphoresis, and nausea
- CT PE without pulmonary embolism
- EKG stable. Troponin less than 0.012 x 2
- Echocardiogram without acute findings
- [facility] 01/16/25: Nonobstructive CAD
- Likely noncardiac. Continue workup per primary team.
Nonobstructive CAD
- TC 207, LDL 131, HDL 44, TG 162
- Start ASA (takes NSAIDs but on PPI). Zetia started this admission which she is willing to try. Has had back reactions to statins.
Current smoker, cessation recommended
GERD with Knapp's esophagus
Fibromyalgia
IBS-D
Objective: Feels fine at rest. When she exerts herself, still has profound diaphoresis and palpitations. Telemetry unremarkable.
Physical Exam
Vital Signs/Labs
Vital Signs
Temp Pulse Resp BP Pulse Ox
98.1 F 78 18 109/64 96
01/16/25 23:18 01/16/25 23:18 01/16/25 23:18 01/16/25 23:18 01/16/25 23:18
01/16/25 01/17/25 01/18/25
06:59 06:59 06:59
Actual Weight 200 lb 8 oz
01/17/25 06:23
01/17/25 06:23
Triglycerides 162 mg/dl (10-149) H 01/16/25 06:55
LDL Cholesterol, Calc 131 mg/dl 01/16/25 06:55
VLDL Cholesterol, Calc 32 mg/dl (0-30) H 01/16/25 06:55
HDL Cholesterol 44 mg/dl 01/16/25 06:55
LAB Results
01/15/25 01/15/25
13:19 16:59
Troponin I < 0.012 < 0.012
Physical Exam
Constitutional: No acute distress and Comfortable
Cardiovascular: Rhythm & rate is regular, Pedal edema is absent, S1S2 is normal and Murmur/rub/gallop absent
Respiratory: Respiratory effort normal and Lungs clear to auscul.
Neuro/Psych: AO x 3
Other: Cath Site (R radial site soft, no erythema)
Data Reviewed
-
Date of Service: January 17, 2025
Medical Decision Making: Reviewed Test Results, Independent Historian Assessment, Test Interpretation and Review of Case with other Provider
EKG: Tracing Personally Visualized and interpreted
Echo: Report Reviewed by me
Labs: Labs Reviewed by me
[2025-01-17] MEDS: LOW STRENGTH ASPIRIN 81 MG PO (10:03)
[2025-01-17] MEDS: XANAX 1 MG PO (10:07)
[2025-01-17 11:57] VITALS: BP 117/70
--- NOTE | 2025-01-17 14:06 | W.DCSUMMARY ---
Documented by User: Harish Castro MD, Resident 01/17/25 14:25
Discharge Summary
Discharge Data
Date of Admission: 01/15/25
Date of Discharge: 01/17/25
-
Pending Results: No
Hospital Course
Discharging Physician : Dr. Darby, Dr. Moreira.
Disposition : Home
Principal Discharge diagnosis : Exertional dyspnea
Hospital Course : 64-year-old female past medical history of anxiety/depression/PTSD, fibromyalgia, GERD, migraines, IBS, Knapp's esophagus, presents with worsening fatigue, exhaustion and nausea and tachycardia with sweats with exertion worse
over the past 2 weeks , the symptoms have been ongoing for the past 2 months. In the ER�EKG shows sinus tachycardia with heart rate 120s occasional PVCs.Labs show leukocytosis. �Troponins negative. �Potassium 3.2. CT chest shows no evidence of
pulmonary embolism. �TSH of 3.22. Her potassium has been repleted. Cardiology consulted. Echo�showed ejection fraction of 55-60% with no acute findings. Cardiology plan on doing ischemic workup with left heart catheterization. LHC�no coronary
artery disease. Patient has been started on ezetimibe for her elevated lipids (patient is allergic to statins). Her symptoms might be related to anxiety, recommended outpatient follow-up with psychiatry to titrate anxiety medications. Patient
has been hemodynamically stable to be discharged home . Also follow-up with pulmonology for PFTs. Follow-up with cardiology. Albuterol as needed at discharge.
New medications at discharge�ezetimibe 10 mg, daily
Albuterol inhaler as needed
Nicotine patch
Important imaging findings :
CT chest�01/15/2025�no evidence of pulmonary embolism
Discharge Plan
-
Patient Disposition: Home (Routine Discharge)
Discharge Diagnosis/Procedures: Exertional dyspnea
Negative cardiac cath
Current tobacco use
Diet: Low Cholesterol
Activity: As tolerated
Driving Restrictions: No driving for 24 hours
Bathing Restrictions: None
Blood Work: None
Others Tests: Pulmonary function test with ginger farmer
Activity Restrictions/Additional Instructions:
Follow-up with your family doctor within 1 week of discharge from the hospital
Follow-up in office with cardiology in 4 to 6-week
Referral for ginger farmer provided, contact office to schedule appointment for evaluation and possibly pulmonary function testing
Follow-up with your psychiatrist within 2 to 3 weeks after discharge
Stand Alone Forms: DC Instructions- Cath/EP Lab
Referrals:
Maryjo Conde MD [Family Provider, Family Practice]
Joe Nunez MD [Active, Cardiology] - in four to six weeks
Dale Chatman MD [Active, Pulmonary Medicine] - in two to three weeks
Additional Discharge Medication Instructions: Start ezetimibe 10 mg daily
Start nicotine patches daily for smoking cessation
Use famotidine 40 mg as needed for worsening GERD symptoms or pain to the epigastrium (right below your sternum)
Use albuterol sulfate inhaler 2 puffs every 6 hours as needed for shortness of breath or wheezing
Prescriptions:
New
nicotine 14 mg/24 hr Patch 24 Hour
14 mg transdermal DAILY 30 Days Qty: 28 0RF
ezetimibe 10 mg Tablet
10 mg PO DAILY 30 Days Qty: 30 0RF
famotidine 40 mg tablet
40 mg PO DAILY PRN (Reason: GERD Sx/epigastric pain) 30 Days Qty: 30 0RF
albuterol sulfate [Ventolin HFA] 90 mcg/actuation HFA aerosol inhaler
2 puff inhalation Q6H PRN (Reason: shortness of breath or wheezing) Qty: 6.7 0RF
Continued
duloxetine [Cymbalta] 60 MG capsule,delayed release(DR/EC)
60 mg PO DAILY
oxycodone-acetaminophen 5 MG/325 MG tablet
1 tab PO Q6HPRN PRN (Reason: Pain) Qty: 8 0RF
celecoxib [Celebrex] 200 mg Capsule
400 mg PO DAILY
celecoxib [Celebrex] 200 mg Capsule
200 mg PO HS
tizanidine 4 mg Tablet
4 mg PO Q8H PRN (Reason: spams)
sertraline [Zoloft] 100 mg Tablet
100 mg PO HS
alprazolam 0.5 mg Tablet
0.5 mg PO DAILY
Premarin 0.625 mg Tablet
0.625 mg PO DAILY
quetiapine [Seroquel] 50 mg Tablet
50 mg PO HS
Savella 100 mg Tablet
100 mg PO DAILY
omeprazole 40 mg Capsule,Delayed Release(Dr/Ec)
80 mg PO DAILY
Imodium
2 mg PO PRN (Reason: Diarrhea)
Discharge Orders:
Discharge Patient (As Directed); Ordered 01/17/25
Ordered By: Negrito Darby
Discharge Date and Time
Discharge Date/Time: 01/17/25 12:36
Print Language: CZECH

Documented by User: Negrito Darby DO 01/17/25 15:31
Discharge Summary
Discharge Data
Date of Admission: 01/15/25
Date of Discharge: 01/17/25
Total time spent discharging patient (in min): 31
Discharge Plan
-
Patient Disposition: Home (Routine Discharge)
Discharge Diagnosis/Procedures: Exertional dyspnea
Negative cardiac cath
Current tobacco use
Diet: Low Cholesterol
Activity: As tolerated
Driving Restrictions: No driving for 24 hours
Bathing Restrictions: None
Blood Work: None
Others Tests: Pulmonary function test with ginger farmer
Activity Restrictions/Additional Instructions:
Follow-up with your family doctor within 1 week of discharge from the hospital
Follow-up in office with cardiology in 4 to 6-week
Referral for ginger farmer provided, contact office to schedule appointment for evaluation and possibly pulmonary function testing
Follow-up with your psychiatrist within 2 to 3 weeks after discharge
Stand Alone Forms: DC Instructions- Cath/EP Lab
Referrals:
Maryjo Conde MD [Family Provider, Family Practice]
Joe Nunez MD [Active, Cardiology] - in four to six weeks
Dale Chatman MD [Active, Pulmonary Medicine] - in two to three weeks
Additional Discharge Medication Instructions: Start ezetimibe 10 mg daily
Start nicotine patches daily for smoking cessation
Use famotidine 40 mg as needed for worsening GERD symptoms or pain to the epigastrium (right below your sternum)
Use albuterol sulfate inhaler 2 puffs every 6 hours as needed for shortness of breath or wheezing
Prescriptions:
New
nicotine 14 mg/24 hr Patch 24 Hour
14 mg transdermal DAILY 30 Days Qty: 28 0RF
ezetimibe 10 mg Tablet
10 mg PO DAILY 30 Days Qty: 30 0RF
famotidine 40 mg tablet
40 mg PO DAILY PRN (Reason: GERD Sx/epigastric pain) 30 Days Qty: 30 0RF
albuterol sulfate [Ventolin HFA] 90 mcg/actuation HFA aerosol inhaler
2 puff inhalation Q6H PRN (Reason: shortness of breath or wheezing) Qty: 6.7 0RF
Continued
duloxetine [Cymbalta] 60 MG capsule,delayed release(DR/EC)
60 mg PO DAILY
oxycodone-acetaminophen 5 MG/325 MG tablet
1 tab PO Q6HPRN PRN (Reason: Pain) Qty: 8 0RF
celecoxib [Celebrex] 200 mg Capsule
400 mg PO DAILY
celecoxib [Celebrex] 200 mg Capsule
200 mg PO HS
tizanidine 4 mg Tablet
4 mg PO Q8H PRN (Reason: spams)
sertraline [Zoloft] 100 mg Tablet
100 mg PO HS
alprazolam 0.5 mg Tablet
0.5 mg PO DAILY
Premarin 0.625 mg Tablet
0.625 mg PO DAILY
quetiapine [Seroquel] 50 mg Tablet
50 mg PO HS
Savella 100 mg Tablet
100 mg PO DAILY
omeprazole 40 mg Capsule,Delayed Release(Dr/Ec)
80 mg PO DAILY
Imodium
2 mg PO PRN (Reason: Diarrhea)
Discharge Orders:
Discharge Patient (As Directed); Ordered 01/17/25
Ordered By: Negrito Darby
Discharge Date and Time
Discharge Date/Time: 01/17/25 12:36
Print Language: CZECH
== END 2025-01-17 12:36 | disposition home or self-care (01) ==
LOC: 4 WEST ACU 18:50
PROVIDERS: Nurse Practitioner Family; Registered Nurse; Student in an Organized Health Care Education/Training Program; ADMITTING PHYSICIAN Hospitalist; ATTENDING PHYSICIAN Internal Medicine; EMERGENCY PHYSICIAN Student in an Organized Health Care Education/Training Program; FAMILY PHYSICIAN Family Medicine; OTHER PHYSICIAN Student in an Organized Health Care Education/Training Program
PROC: B2141ZZ Fluoroscopy of Right Heart using Low Osmolar Contrast (ICD-10-PCS; 2025-01-16)
DX: I25.10 Atherosclerotic heart disease of native coronary artery without angina pectoris (principal); R53.83 Other fatigue; R11.0 Nausea; Z87.19 Personal history of other diseases of the digestive system; K21.9 Gastro-esophageal reflux disease without esophagitis; M79.7 Fibromyalgia; K58.0 Irritable bowel syndrome with diarrhea; F41.9 Anxiety disorder, unspecified; F17.210 Nicotine dependence, cigarettes, uncomplicated; R06.09 Other forms of dyspnea; R00.0 Tachycardia, unspecified; K22.70 Barrett's esophagus without dysplasia
CPT/HCPCS: 93456; 71275; 80048; 80053; 80061; 83036; 84443; 84484; 85025; 85027; 85379; 93005; 93306; 93458; 96361; 96374; 99152; 99153; 99285; C1894; G0378; Q9967